=== PATIENT | male | born 1970 | race Caucasian/White ===

== ENCOUNTER 2018-12-23 10:50 | Outpatient (CLI) | payer OTHER ==
[2018-12-23 11:47] LABS: Cardiac Risk 3.9 (Less than 4.5)
[2018-12-23 12:04] LABS: Free T4 (Free Thyroxine) 0.92 ng/dL (0.70-1.48); Thyroid Stimulating Hormone 0.6281 uIU/mL (0.35-4.94)
--- NOTE | 2018-12-23 12:23 | CT ---
CT OF CHEST PERFORMED WITHOUT CONTRAST ENHANCEMENT: History: Follow up of a possible right middle lobe pulmonary nodule seen on the lower most slice of a previous CT of the chest done at [facility]. Comparison: 04-28-11 FINDINGS: The lungs show some minimal ground glass opacity within the right lung base. There is a pleural based calcification seen in the anterior segment of the right upper lobe. There are findings that suggest some element of emphysema. The density that was seen in the right middle lobe which appeared to be along the hemidiaphragm which is not definitely visualized on this study and probably just represented some minimal pleural based changes seen within along the right hemidiaphragm. No definite discrete nodule is identified. No significant mediastinal adenopathy is seen. The axillary nodes appear unremarkable. Visualized liver parenchyma shows no focal finding. IMPRESSION: 1. No definitive nodule within the right middle lobe. The density seen on the previous CT is probably just related to some volume averaging. POS: [facility]
[2018-12-23 14:27] LABS: Hemoglobin A1c 5.3 % (4.0-6.0)
== END 2018-12-23 10:51 | disposition home or self-care (01) ==
LOC: SCSCT 10:50
PROVIDERS: ATTEND Family Medicine
DX: Z00.00 Encounter for general adult medical examination without abnormal findings (principal); R91.1 Solitary pulmonary nodule; Z13.1 Encounter for screening for diabetes mellitus
CPT/HCPCS: 36415; 71250; 80061; 83036; 84439; 84443